=== PATIENT | male | born 1945 | race Caucasian/White ===

== ENCOUNTER 2024-03-24 11:32 | Emergency (ER) | payer MEDICARE, SELFPAY ==
--- NOTE | ~2024-03-24 | XR_ITS ---
EXAMINATION: XR hip RT 2V w AP pelvis DATE: 03/24/2024 12:05 INDICATION: Right hip pain. TECHNIQUE: An anteroposterior view of the pelvis and 2 views of right hip were obtained. 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 No periprosthetic lucen cy to suggest loosening or infection. No acute fracture. There is mild left hip osteoarthritis. There is a chronic fracture of L4 vertebral body. IMPRESSION: 1. 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 2. Mild left hip osteoarthritis. Reviewed, dictated and finalized at location A.
[2024-03-24 11:32] VITALS: BP 133/84; PULSE 68; RESP 17; TEMP 36.3; O2SAT 98
--- NOTE | 2024-03-24 11:52 | ED.EXTPRO ---
HPI - Extremity Problem General Chief complaint: Extremity Problem,Nontraumatic Stated complaint: hip hurts History of Present Illness HPI Narrative: This is an 79-year-old man with degenerative disc disease hand away in his hands his only medication is Repatha and Tylenol 3 who presents to the emergency department with a 2 day history of right hip or leg pain. He reports that on was attempting to change the tire vehicle. One of the lug nuts was stuck tightly and he was attempting to move the ranch while in a bending position using a jerking motion and he experienced sharp pain across his lower back. 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 He had increasing pain the following day on 03/23/2024 and finally it is severe pain on the date of today's visit. He indicates sharp pain posterior proximal leg essentially at the base of the gluteus muscle. He is not currently having any back pain. He denies any other complaints concerns at this time. He did not sustain any other injuries in the initial inciting event. Patient had a right hip replacement approximately 8 years ago and his primary concern is that he has re-injured that hip or disrupted the hardware in some way. Negative for ACR low back red flags including recent high mechanism trauma, history of recent or active cancer, unexplained weight loss, immunocompromise, IV drug use, unexplained fevers, saddle numbness, incontinence to bladder or bowel.? Related Data Allergies Allergy/AdvReac Type Severity Reaction Status Date / Time NSAIDS (Non-Steroidal Allergy Intermediate Verified 09/12/20 17:12 Anti-Inflamma [facility] Social History Social History (System 09/12/20 @ 17:12 by Tere Bravo) Smoking status: Former smoker Exam Narrative: VITAL SIGNS: Rwviewed and all within normal limits. GEN: Awake, alert, and appropriate to situation. Appropriate mood and affect. Nontoxic, NAD. NEURO: Normal speech. Balance and gait both appear normal. No lateralizing or focal deficits noted. Inspection: Normal gait. No deformity, erythema, swelling, or ecchymosis. Palpation: Thoracolumbar paraspinal muscles non-tender to palpation without hypertoncity. ROM: Full ROM with lumbar flexion, extension, thoracic rotation b/l, sidebending b/l. Neuro: 5/5 muscle strength with hip flexion, adduction, abduction, knee extension and flexion, plantar flexion, dorsiflexion, ankle inversion, and eversion. Sensation to light touch intact b/l L3-S1 dermatomes. Quadricpes and Achilles DTRs 2/4 b/l. Vascular: +2 dorsalis pedis and posterior tibial pulses b/l. Normal capillary refill. Inspection: Normal gait. No deformity, erythema, swelling, or ecchymosis. Palpation: Non-tender to palpation as ASIS, AIIS, greater trochanter, ischial spine. Tender to palpation over the deep gluteus muscle. ROM: Full ROM with hip flexion, extension, abduction, adduction, internal rotation, external rotation, knee flexion and extension. patient actually spontaneously does squats in the room unprompted Neuro: 5/5 muscle strength with hip flexion, adduction, abduction, knee extension and flexion Sensation to light touch intact b/l L3-L5 dermatomes. Quadricpes DTRs 2/4 b/l. Vascular: +2 dorsalis pedis and posterior tibial pulses b/l. Normal capillary refill. Special tests: (-) NAI (-) FADIR (-) Log roll Course Vital Signs Vital signs: Vital Signs Temperature 36.3 C L 03/24/24 11:32 Pulse Rate 68 03/24/24 11:32 Respiratory Rate 17 03/24/24 11:32 Blood Pressure 133/84 03/24/24 11:32 Pulse Oximetry 98 03/24/24 11:32 Oxygen Delivery Room Air 03/24/24 11:32 Temperature 36.1 C L 03/24/24 12:28 Pulse Rate 60 03/24/24 12:28 Respiratory Rate 17 03/24/24 12:28 Blood Pressure 129/81 03/24/24 12:28 Pulse Oximetry 99 03/24/24 12:28 Oxygen Delivery R
[2024-03-24 12:28] VITALS: BP 129/81; PULSE 60; RESP 17; TEMP 36.1; O2SAT 99
== END 2024-03-24 12:48 | disposition home or self-care (01) ==
PROVIDERS: Emergency Provider Family Medicine
DX: S76.011A Strain of muscle, fascia and tendon of right hip, initial encounter (principal); S76.311A Strain of muscle, fascia and tendon of the posterior muscle group at thigh level, right thigh, initial encounter; Z87.891 Personal history of nicotine dependence; X50.0XXA Overexertion from strenuous movement or load, initial encounter
CPT/HCPCS: 73502; 99283